=== PATIENT | female | born 1985 ===

== ENCOUNTER 2018-01-28 12:47 | Emergency (ER) | payer BC ==
--- NOTE | 2018-01-28 12:56 | UC ---
UC General HPI - History of Current Complaint Stated Complaint: REFILL RX Time Seen by Provider: 01/28/18 12:55 Discharge - Discharge Plan Referrals: No Primary Care Phys,NOPCP [Primary Care Provider] -
== END 2018-01-28 13:02 | disposition left against medical advice (07) ==
LOC: UCEAST 12:47
DX: Z76.0 Encounter for issue of repeat prescription (principal); Z53.21 Procedure and treatment not carried out due to patient leaving prior to being seen by health care provider